=== PATIENT | female | born 1995 | race Caucasian/White ===

== ENCOUNTER → 2017-05-05 | Outpatient (CLI) | payer OTHER | LOC: BMCIMAGING 12:04 | PROVIDERS: ATTEND Internal Medicine Rheumatology | DX: M79.641 Pain in right hand (principal); M79.642 Pain in left hand; M25.551 Pain in right hip; M25.552 Pain in left hip ==

== ENCOUNTER → 2017-05-20 | Outpatient (CLI) | payer OTHER | LOC: BMCIMAGING 07:19 | PROVIDERS: ATTEND Internal Medicine Rheumatology | DX: Z13.89 Encounter for screening for other disorder (principal); Z97.5 Presence of (intrauterine) contraceptive device ==

== ENCOUNTER 2017-12-26 21:23 | Emergency (ER) | payer OTHER ==
[2017-12-26 21:27] VITALS: BP 125/74
== END 2017-12-26 22:26 | disposition left against medical advice (07) ==
DX: Z53.21 Procedure and treatment not carried out due to patient leaving prior to being seen by health care provider (principal)

== ENCOUNTER 2017-12-26 23:37 | Emergency (ER) | payer OTHER ==
--- NOTE | 2017-12-26 23:49 | EDPHY ---
H & P Stated Complaint: Right flank pain Time Seen by Provider: 12/26/17 23:49 HPI/ROS: HPI CHIEF COMPLAINT: Right low back pain. HISTORY OF PRESENT ILLNESS: This is a very pleasant 22-year-old female, she does have a history of rheumatoid arthritis, on Plaquenil, presents emergency room with right lower back pain. Patient has had this pain for 2 days. [facility] however this only made her sleepy and did not help with her pain. She presents emergency room with ongoing right posterior SI joint pain. She denies any trauma. It is worse when she has truncal axial movements or bending over. Denies fever. Denies midline back pain. Denies saddle anesthesia. Denies leg weakness. Denies focal numbness or tingling. Denies chest pain or shortness of breath. Denies urinary symptoms. Past Medical History: Significant medical history is for rheumatoid arthritis Past Surgical History: No recent surgery Social History: [employer] student, denies drugs alcohol tobacco. Family History: Noncontributory ROS REVIEW OF SYSTEMS: 10 Systems were reviewed and negative with the exception of the elements mentioned in the history of present illness. Exam Constitutional appears well nontoxic triage nursing summary reviewed, vital signs reviewed, awake/alert. Eyes normal conjunctivae and sclera, EOMI, PERRLA. HENT normal inspection, atraumatic, moist mucus membranes, no epistaxis, neck supple/ no meningismus, no raccoon eyes. Respiratory clear to auscultation bilaterally, normal breath sounds, no respiratory distress, no wheezing. Cardiovascular rate normal, regular rhythm, no murmur, no edema, distal pulses normal. Gastrointestinal soft, non-tender, no rebound, no guarding, normal bowel sounds, no distension, no pulsatile mass. Genitourinary no CVA tenderness. Musculoskeletal over the right posterior SI joint there is focal tenderness palpation no overlying cellulitis or skin inflammation seen. Additionally legs are neurovascular intact, no saddle anesthesia, no leg weakness, no midline lumbar spine pain. no midline vertebral tenderness, full range of motion, no calf swelling, no tenderness of extremities, no meningismus, good pulses, neurovascularly intact. Skin pink, warm, & dry, no rash, skin atraumatic. Neurologic awake, alert and oriented x 3, AAOx3, moves all 4 extremities equally, motor intact, sensory intact, CN II-XII intact, normal cerebellar, normal vision, normal speech. Psychiatric normal mood/affect. Heme/Lymph/Immune no lymphadenopathy. Differential Diagnosis: Includes but is not limited to in a particular order lumbar strain, nerve root compression, annular tear, SI joint pain, disc herniation, rheumatoid arthritis inflammation, musculoskeletal strain, UTI, pyelonephritis, kidney stone Medical Decision Making: Plan for this patient p.o. Ibuprofen 800 mg, and a 1000 mg Tylenol for pain control. X-ray lumbar spine, and urinalysis. Re- evaluate. Re-evaluation: Lumbar spine x-ray reviewed. Negative for acute traumatic injury. Urinalysis does not indicate infection was a dirty catch. I recommend the patient ice her back. Rest. I recommend alternating Tylenol Motrin for pain control. Return precautions discussed with her. She is comfortable this plan. 0146: I did re-evaluate her she is resting comfortably. Pain improved after ibuprofen 800 mg. Source: Patient - Personal History LMP (Females 10-55): 15-21 Days Ago Current Tetanus/Diphtheria Vaccine: No Current Tetanus Diphtheria and Acellular Pertussis (TDAP): No - Medical/Surgical History Hx Asthma: No Hx Chronic Respiratory Disease: No Hx Diabetes: No Hx Cardiac Disease: No Hx Renal Disease: No Hx Cirrhosis: No Hx Alcoholism: No Hx HIV/AIDS: No Hx Splenectomy or Spleen Trauma: No Other PMH: RA - Social History Smoking Status: Never smoked Constitutional: Initial Vital Signs Temperature (C) 37.4 C 12/26/17 23:38 Heart Rate 77 12/26/17 23:38 Respiratory Rate 16 12/26/17 23:38 Blood Pressure 115/81 H 12/26/17 23:38 O2 Sat (%) 99 12/26/17 23:38 O2 Delivery Mode Room Air Allergies/Adverse Reactions: No Known Allergies Allergy (Verified 12/26/17 23:40) Home Medications: Medication Instructions Recorded Klonopin 12/26/17 PlatINOL 12/26/17 Ibuprofen [Motrin (*)] 800 mg PO Q6-8PRN #10 tab 12/27/17 Medical Decision Making - Data Points Laboratory Results: 12/27/17 12/26/17 01:22 23:55 Urine Color PALE YELLOW YELLOW Urine Appearance CLEAR HAZY Urine pH 6.0 6.0 (5.0-7.5) (5.0-7.5) Ur Specific [place] 1.006 1.020 (1.002-1.030) (1.002-1.030) Urine Protein NEGATIVE NEGATIVE (NEGATIVE) (NEGATIVE) Urine Ketones NEGATIVE NEGATIVE (NEGATIVE) (NEGATIVE) Urine Blood NEGATIVE 2+ H (NEGATIVE) (NEGATIVE) Urine Nitrate NEGATIVE NEGATIVE (NEGATIVE) (NEGATIVE) Urine Bilirubin NEGATIVE NEGATIVE (NEGATIVE) (NEGATIVE) Urine Urobilinogen NEGATIVE EU EU NEGATIVE EU EU (0.2-1.0) (0.2-1.0) Ur Leukocyte Esterase NEGATIVE 2+ H (NEGATIVE) (NEGATIVE) Urine RBC 1-3 /hpf /hpf (0-3) Urine WBC 15-25 /hpf H /hpf (0-3) Ur Epithelial Cells 2+ /lpf H /lpf (NONE-1+) Urine Mucus TRACE /lpf /lpf (NONE-1+) Urine Glucose NEGATIVE NEGATIVE (NEGATIVE) (NEGATIVE) Medications Given: Discontinued Medications Acetaminophen (Tylenol) 1,000 mg PO EDNOW ONE Stop: 12/26/17 23:56 Last Admin: 12/27/17 00:09 Dose: 1,000 mg Ibuprofen (Motrin) 800 mg PO EDNOW ONE Stop: 12/26/17 23:56 Last Admin: 12/27/17 00:09 Dose: 800 mg Departure - Departure Disposition: Home, Routine, Self-Care Clinical Impression: Musculoskeletal back pain Condition: Good Instructions: Musculoskeletal Pain (ED), Muscle Spasm (ED) Additional Instructions: 1. Ice her back. 2. Alternate anti-inflammatory pain medicine like Tylenol Motrin every 6 hr for pain control. 3. Return to the ER for worsening symptoms includes worsening pain, questions or concerns. Referrals: NONE *PRIMARY CARE P,. [Primary Care Provider] - As per Instructions [facility] [Clinic] - As per Instructions Prescriptions: Ibuprofen [Motrin (*)] 800 mg PO Q6-8PRN #10 tab
[2017-12-26] MEDS ORDERED: ACETAMINOPHEN 500 MG TAB PO ONE (23:55)
[2017-12-26] MEDS ORDERED: IBUPROFEN 800 MG TAB PO ONE (23:55)
[2017-12-27 02:06] VITALS: BP 110/78
== END 2017-12-27 02:06 | disposition home or self-care (01) ==
DX: M54.5 Low back pain (principal); M79.1 Myalgia; M06.9 Rheumatoid arthritis, unspecified